=== PATIENT | male | born 1970 | race Caucasian/White ===

== ENCOUNTER 2023-03-08 12:45 | Outpatient (OUT) | payer OTHER, SELFPAY ==
--- NOTE | 2023-03-08 12:57 | ECG_ITS ---
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
--- NOTE | 2023-03-08 14:10 | P.GSHP_ITS ---
History of Present Illness History of Present Illness Chief complaint: ROTATOR CUFF REPAIR Narrative: Patient present for preadmission testing. Please see HPI from Dr. Hogue dated 03/01/2023. Review of Systems ROS Narrative Please see ROS from Dr. Hogue dated 03/01/2023. PFSH PFS Medical History (Updated 03/08/23 @ 13:14 by Dana Leslie NP) Anxiety ?F41.9 - Anxiety disorder, unspecified (ICD-10) Arthritis ?M19.90 - Unspecified osteoarthritis, unspecified site (ICD-10) COVID-19 ?U07.1 - COVID-19 (ICD-10) Gout ?M10.9 - Gout, unspecified (ICD-10) Heartburn ?R12 - Heartburn (ICD-10) Kidney stones ?N20.0 - Calculus of kidney (ICD-10) Rotator cuff tear ?M75.100 - Unspecified rotator cuff tear or rupture of unspecified shoulder, not specified as traumatic (ICD-10) S/P extracorporeal shock wave therapy ?Z98.890 - Other specified postprocedural states (ICD-10) Wrist fracture ?S62.109A - Fracture of unspecified carpal bone, unspecified wrist, initial encounter for closed fracture (ICD-10) Surgical History (Updated 03/08/23 @ 13:11 by Dana Leslie NP) History of appendectomy ?Z90.49 - Acquired absence of other specified parts of digestive tract (ICD- 10) History of arthroscopy of knee ?Z98.890 - Other specified postprocedural states (ICD-10) History of cholecystectomy ?Z90.49 - Acquired absence of other specified parts of digestive tract (ICD- 10) Family History (Updated 03/08/23 @ 13:11 by Dana Leslie NP) Other Family history of diabetes mellitus Family history of gastric cancer Family history of lung cancer Family history of stroke Social History (Updated 03/08/23 @ 13:08 by Dana Leslie NP) Within the past year, how often did you have a drink containing alcohol: monthly or less Smoking status: Never smoker Previous occupational history: Teacher Highest level of school completed/degree received: Bachelor's degree Meds Home Medications and Allergies Allergies Allergy/AdvReac Type Severity Reaction Status Date / Time acetaminophen [From [place]] Allergy Depression Verified 03/08/23 13:07 hydrocodone [From [place]] Allergy Depression Verified 03/08/23 13:07 Exam Narrative Exam Narrative: Constitutional: Awake, alert, comfortable, well-appearing, nontoxic, interactive, vital signs as charted Head: Normocephalic, atraumatic Neck: Supple, normal appearance, normal range of motion, no meningeal signs, no lymphadenopathy Respiratory: No respiratory distress, breath sounds clear Cardiovascular: Regular rate and rhythm, strong and regular heart tones Psychiatric: Oriented ?3, normal affect Assessment and Plan Assessment and Plan (1) Rotator cuff tear: Plan Left shoulder arthroscopic rotator cuff repair, possible biceps tenodesis scheduled with Dr. Hogue 03/27/2023.
== END 2023-03-08 12:46 | disposition home or self-care (01) ==
LOC: PST 12:50
PROVIDERS: Visit Provider Orthopaedic Surgery
DX: Z01.810 Encounter for preprocedural cardiovascular examination (principal); M75.122 Complete rotator cuff tear or rupture of left shoulder, not specified as traumatic
CPT/HCPCS: 93005; G0463

== ENCOUNTER 2023-03-27 11:38 | Day surgery (SDC) | payer OTHER, SELFPAY ==
[2023-03-08 14:06] VITALS: BP 147/91; PULSE 78; RESP 18; TEMP 36.3; O2SAT 98; BMI 37.6
[2023-03-27] VITALS (12 sets, daily range): BP systolic 139–158; BP diastolic 77–117; PULSE 66–97; RESP 13–22; TEMP 36.1–36.2; O2SAT 91–97; BMI 36.6
[2023-03-27 11:46] LABS: Basophils Percent Auto 0.4 % (0.2-2.0); Eosinophils Absolute Auto 0.3 10^3/uL (0.0-0.7); Eosinophils Percent Auto 3.4 % (0.9-7.0); Hematocrit 46.1 % (42.0-54.0); Hemoglobin 15.2 g/dL (14.0-18.0); Immature Granulocytes Abs Auto 0.04 10^3/uL (0.00-0.03); Immature Granulocytes Pct Auto 0.5 % (0.0-0.5); Lymphocytes Absolute Auto 2.3 10^3/uL (1.2-3.8); Lymphocytes Percent Auto 28.2 % (20.5-60.0); Mean Corpuscular Hemoglobin 28.8 pg (25.9-34.0); Mean Corpuscular Volume 87.3 fL (80.0-94.0); Mean Platelet Volume 8.5 fL (9.5-13.5); Monocytes Absolute Auto 0.7 10^3/uL (0.3-0.8); Monocytes Percent Auto 8.7 % (1.7-12.0); Neutrophils Absolute Auto 4.8 10^3/uL (1.4-6.5); Neutrophils Percent Auto 58.8 % (43.0-75.0); Platelet Count 198 10^3/uL (150-450); Red Blood Count 5.28 10^6/uL (4.70-6.10); Red Cell Distribution Width 13.4 % (11.0-15.0); White Blood Count 8.1 10^3/uL (4.0-11.0)
[2023-03-27] MEDS: LACTATED RINGER'S SOLUTION 1,000 ML 50 ML IV ×2 (12:17→14:37)
[2023-03-27] MEDS: CEFAZOLIN SODIUM 3,000 MG in 0.9 % SODIUM CHLORIDE 100 ML 200 MG IV (12:48)
--- NOTE | 2023-03-27 13:09 | PC.NURSE ---
1250 Patient positioned for block. Time out performed at 1232. O2 applied per protocol. Vitals monitored throughout block related to medicated by anesthesia for block procedure. Bedside ultrasound used to located site. Patient tolerated block with ease. Voiced no complaints or concerns. Continued to monitor until taken to OR. Block took from 1234 until 1244.
[2023-03-27] MEDS: EPINEPHRINE HCL PF 1 MG/ML AMPULE 3 MG INJ (13:36)
[2023-03-27] MEDS: BUPIVACAINE HCL 0.5% PF 50 MG/10 ML VIAL 20 ML INJ (14:36)
--- NOTE | 2023-03-27 15:16 | PM.ORPRC ---
Procedure Note Date of procedure: 03/27/23 Pre-op diagnosis: Left shoulder rotator cuff tear Post-op diagnosis: other (1. Left shoulder rotator cuff tear 2. Partial biceps tendon tear) Procedure: Procedure: 1. Left shoulder arthroscopic rotator cuff tear 2. Left shoulder subpectoralis biceps tenodesis Operative Procedure: After informed consent was obtained the patient was brought to the operating room where general anesthetic was administered. Preoperatively a regional block was placed. The patient was placed in the beachchair position. Exam under anesthesia of the left shoulder revealed full range of motion and no instability. The left shoulder was prepped and draped in the usual sterile fashion. Diagnostic arthroscopy was performed through standard anterior, posterior, and lateral arthroscopy portals. Findings included a near full-thickness tear of the biceps tendon within the joint. This was tenotomized for later tenodesis. The labrum was intact circumferentially. The subscapularis tendon was intact. The supra and infraspinatus tendons had full-thickness tears that were retracted 2 cm. These were mobile and easily brought back down to the greater tuberosity. The articular cartilage of the glenohumeral joint was intact. The axillary recess did not have any loose bodies. The arthroscope was introduced into the subacromial space and there was moderate bursal inflammation which was removed the arthroscopic shaver. The greater tuberosity where the rotator cuff and torn from was debrided down to bleeding bed of bone. 1 Arthrex suture tape and 1 Arthrex fiber tape were placed in the torn rotator cuff tendons in an inverted horizontal mattress fashion. These were then repaired to the greater tuberosity with 1 Arthrex 4.75 bio composite swivel lock. Solid fixation in the bone was achieved. 1 retention suture was passed anteriorly through the rotator cuff tear in a simple fashion tied. Solid repair was achieved. The shoulder was drained of arthroscopy fluid and portals were closed with 3-0 nylon suture. A 3 cm incision was made in the pre-existing longitudinal crease in the arm just below the pectoralis. Blunt dissection was carried down below the pectoralis muscle and tendon and then the tenotomized biceps tendon was externalized. A Arthrex 2 running locking suture was then placed from the muscle tendon junction extending 2 cm. Remaining tendon was discarded. The suture tendon measured 5 mm in diameter. The 2 suture ends were placed through the Arthrex biceps button in standard fashion. These guidepin was placed in a bicortical fashion in the appropriate position of the bicipital groove. A unicortical 5 mm tunnel was created over the top of this. The biceps button was then passed to the far cortex and flipped. Sutures were pulled introducing the tendon into the tunnel that was created. Sutures were tied. Nice repair was achieved. Irrigated. Wound was closed with absorbable suture layer. Steri-Strips and sterile dressing was placed. UltraSling was placed. Patient was awakened and brought to the recovery room in stable condition. There were no intraoperative or immediate postoperative complications. Anesthesia: regional and General-LMA Surgeon: Nestor Hogue Estimated blood loss (mL): 10 Pathology: none sent Condition: stable Disposition: PACU
== END 2023-03-27 16:01 | disposition home or self-care (01) ==
PROVIDERS: Anesthesiology; Visit Provider Orthopaedic Surgery
PROC: (CPT 23430; principal; 2023-03-27 13:00)
DX: M75.122 Complete rotator cuff tear or rupture of left shoulder, not specified as traumatic (principal); F41.9 Anxiety disorder, unspecified; Z86.16 Personal history of COVID-19; Z87.442 Personal history of urinary calculi; Z90.49 Acquired absence of other specified parts of digestive tract; S62.115D Nondisplaced fracture of triquetrum [cuneiform] bone, left wrist, subsequent encounter for fracture with routine healing; Z86.73 Personal history of transient ischemic attack (TIA), and cerebral infarction without residual deficits
CPT/HCPCS: 23430; 29827; 36415; 64415; 85025; C1713; J2704